=== PATIENT | female | born 1955 | race Caucasian/White ===

== ENCOUNTER 2018-11-30 07:19 | Outpatient (CLI) | payer BC ==
--- NOTE | 2018-11-30 10:02 | ULT ---
BILATERAL RENAL ULTRASOUND: Date4: 11/30/18 HISTORY: Chronic renal disease, diabetes, and hypertension. FINDINGS: The right kidney measures 11.5 cm in length and the left kidney measures 11.4 cm in length. No focal mass or hydronephrosis seen on either side. There is a 4.0 x 2.0 mm shadowing echogenic focus in the left mid renal cortex. The urinary bladder is not satisfactorily distended with a volume of 23 mL. IMPRESSION: Findings suggestive of a nonobstructing 4.0 x 2.0 mm left renal calculus. POS: OFF
--- NOTE | 2018-12-16 13:57 | MMO ---
Bilateral MAMMO Bilat Screen [facility]. CLINICAL HISTORY: Patient is 63 years old and is seen for screening. The patient has no family history of breast cancer. The patient has no personal history of cancer. VIEWS: The views performed were: bilateral craniocaudal with tomosynthesis and bilateral mediolateral oblique with tomosynthesis. FILMS COMPARED: The present examination has been compared to prior imaging studies performed at on 11/06/2009, 08/22/2013, 02/27/2015 and 02/09/2017. MAMMOGRAM FINDINGS: There are scattered fibroglandular densities. Benign calcifications are noted bilaterally. Nodularity is stable. There are no suspicious masses, suspicious calcifications, or new areas of architectural distortion. IMPRESSION: THERE IS NO MAMMOGRAPHIC EVIDENCE OF MALIGNANCY. A ROUTINE FOLLOW-UP MAMMOGRAM IN 1 YEAR IS RECOMMENDED. THE RESULTS OF THIS EXAM WERE SENT TO THE PATIENT. ACR BI-RADS Category 2 - Benign finding MAMMOGRAPHY NOTE: 1. A negative mammogram report should not delay a biopsy if a dominant of clinically suspicious mass is present. 2. Approximately 10% to 15% of breast cancers are not detected by mammography. 3. Adenosis and dense breasts may obscure an underlying neoplasm.
== END 2018-11-30 07:20 | disposition home or self-care (01) ==
LOC: BICULT 07:19
PROVIDERS: ATTEND Internal Medicine
DX: Z12.31 Encounter for screening mammogram for malignant neoplasm of breast (principal); N18.3 Chronic kidney disease, stage 3 (moderate)
CPT/HCPCS: 76770; 77063; 77067

== ENCOUNTER 2018-12-07 07:11 | Outpatient (CLI) | payer BC ==
--- NOTE | 2018-12-07 08:08 | CT ---
FLow-dose screening chest CT: 12/07/2018 COMPARISON: None HISTORY: Current smoker, smoked for 40 years, personal history of nicotine dependence TECHNIQUE: Low-dose screening CT examination of the chest performed without contrast. Coronal and sag ittal reformatted imaging provided. FINDINGS: Lack of contrast media limits assessment of the imaged viscera, the vascular structures, an d for lymphadenopathy. Coronary arterial calcification is noted. Imaged upper abdomen appears grossly unremarkable. No pleur al, pericardial, or mediastinal fluid is seen. Scattered areas of atherosclerotic calcification noted involving the ascending aorta, aortic arch, and descending thoracic aorta. No pneumothorax evident on either side. Left upper lobe: Inferiormost aspect of left upper lobe/lingula incompletely imaged. No pulmonary par enchymal mass lesion or nodule noted. Left lower lobe: No discrete pulmonary parenchymal mass lesion or nodule noted. Right upper lobe: Tiny nodule measuring 2 mm seen on coronal image 91. Similar tiny nodule noted late rally on coronal image 66. No significant pulmonary parenchymal mass lesion or nodule noted in right upper lobe. Right middle lobe: No significant pulmonary parenchymal mass lesion or nodule. Right lower lobe: Inferior most aspect of the right lower lobe posteriorly incompletely imaged. No si gnificant pulmonary parenchymal mass lesion or nodule noted. Review of the osseous structures no worrisome lytic or blastic lesion. IMPRESSION: No significant pulmonary parenchymal mass lesion or nodule. Coronary arterial calcificati on noted. The inferior most aspect of the left upper lobe and right lower lobe were not fully imaged and thus t he patient will be contacted to return for additional imaging. Once the lung parenchyma is fully imag ed, a final impression will be issued.
== END 2018-12-07 07:12 | disposition home or self-care (01) ==
LOC: CT 07:11
PROVIDERS: ATTEND Internal Medicine
DX: Z12.2 Encounter for screening for malignant neoplasm of respiratory organs (principal); F17.210 Nicotine dependence, cigarettes, uncomplicated; I25.10 Atherosclerotic heart disease of native coronary artery without angina pectoris
CPT/HCPCS: G0297

== ENCOUNTER 2019-06-02 13:23 | Outpatient (CLI) | payer BC ==
--- NOTE | 2019-06-10 15:47 | ULT ---
LOWER EXTREMITY ARTERIAL EVALUATION USING DOPPLER WAVEFORMS ANALYSIS AND SEGMENTAL LIMB PRESSURES: 06/02/19 Examination of the right leg reveals abnormal waveforms at all levels. Ankle-arm index of 0.62. Left lower extremity reveals abnormal waveforms at all levels. Ankle-arm index of 0.58. ASSESSMENT: This study is consistent with probable aortoiliac disease as well as possible superficial femoral ar eze disease bilaterally and would be consistent with a history of calf claudication bilaterally.
== END 2019-06-02 13:24 | disposition home or self-care (01) ==
LOC: ULT 13:23
PROVIDERS: ATTEND Internal Medicine
DX: I73.9 Peripheral vascular disease, unspecified (principal)
CPT/HCPCS: 93922

== ENCOUNTER 2019-11-29 14:07 | Outpatient (CLI) | payer BC ==
--- NOTE | 2019-11-29 15:08 | CT ---
CT CHEST NONCONTRAST LOW DOSE SCREENING: HISTORY: Tobacco abuse. Smoked for 40 years. COMPARISON: 12/07/2018. FINDINGS: Lungs remain slightly hyperinflated. Mild parenchymal scarring at the right anterior lung base. No jolanta ng nodules evident. No pleural fluid or pneumothorax. Calcification within the arterial structures including coronary arteries. Lack of contrast limits evaluation of the soft tissues. No bulky mediastinal adenopathy. Involving the anterolateral aspect of left rib 5 is a focal area of sclerosis with minimal if any veronica pasquale formation. No lytic lesion is evident. Immediately below this at the anterolateral aspect of left rib 6 is a subtle area of sclerosis without callus formation or fracture apparent. These rib abn ormalities were not present on the prior study from 12/07/2018. IMPRESSION : 1. Lung RADS category 2. Benign. Suggest routine screening. 2. Left anterolateral mid rib abnormalities as detailed above. These are favored to represent healin g fractures. If there is appropriate clinical history for recent left anterolateral 5th and 6th healing rib fractures in the last year, this would best explain the abnormalities on CT. In the absen ce of a good history to correlate, metastatic lesions must be considered. In that case, radionucleotide bone scan could be performed. While these lesions would show increased uptake whether fractures or neoplasm, the bone scan would be used to evaluate for other lesions throughout the skeleton. 3. Lung RADS category S. 4. Atherosclerosis. Transcribed Date/Time: 11/29/2019 3:21 PM
== END 2019-11-29 14:08 | disposition home or self-care (01) ==
LOC: BICCT 14:07
PROVIDERS: ATTEND Internal Medicine
DX: Z12.2 Encounter for screening for malignant neoplasm of respiratory organs (principal); F17.210 Nicotine dependence, cigarettes, uncomplicated; Z53.20 Procedure and treatment not carried out because of patient's decision for unspecified reasons; I25.10 Atherosclerotic heart disease of native coronary artery without angina pectoris; I70.90 Unspecified atherosclerosis; Z87.81 Personal history of (healed) traumatic fracture
CPT/HCPCS: G0297

== ENCOUNTER 2019-12-09 10:18 | Outpatient (CLI) | payer BC ==
--- NOTE | 2019-12-09 13:47 | NM ---
EXAM: NM Bone Scan STANDARD PROVIDED CLINICAL HISTORY: Rib abnormalities seen on prior CT thorax COMPARISON: CT pulmonary lung scan on 11/29/2019 FINDINGS: Increased uptake of radiotracer is seen within each shoulder, sternoclavicular joints, each wrist, an d each knee in a degenerative pattern. There is a focus of increased uptake of radiotracer seen in the left anterior fifth rib and to a much lesser extent increased uptake within a left anterior sixth rib. No additional areas of abnormal increased uptake of radiotracer are seen throughout the visualized axial or appendicular skeleton to suggest scintigraphic evidence of metastatic disease. Two separate contiguous areas of uptake within the left anterior ribs corresponds to the CT scan abnormality, and findings are likely seconda ry to prior injury and healing rib fractures. Expected activity is seen in each kidney and in the urinary bladder. IMPRESSION: 1. Foci of increased uptake within the left anterior fifth and sixth ribs without additional scintigr aphic findings to suggest osseous metastatic disease. These findings are thought to most likely be compatible with healing anterior left-sided rib fractures. 2. Degenerative changes as described above.
== END 2019-12-09 10:19 | disposition home or self-care (01) ==
LOC: NM 10:18
PROVIDERS: ATTEND Internal Medicine
DX: R93.89 Abnormal findings on diagnostic imaging of other specified body structures (principal); M19.90 Unspecified osteoarthritis, unspecified site
CPT/HCPCS: 78306; A9503

== ENCOUNTER 2020-12-18 13:27 | Outpatient (CLI) | payer BC, OTHER | END 2020-12-18 13:28 | disposition home or self-care (01) | LOC: BICMAMMO 13:27 | PROVIDERS: ATTEND Internal Medicine | DX: Z12.31 Encounter for screening mammogram for malignant neoplasm of breast (principal); Z13.820 Encounter for screening for osteoporosis; Z78.0 Asymptomatic menopausal state; M85.89 Other specified disorders of bone density and structure, multiple sites | CPT/HCPCS: 77063; 77067; 77080 ==

== ENCOUNTER 2022-01-15 14:05 | Outpatient (CLI) | payer OTHER | END 2022-01-15 14:06 | disposition home or self-care (01) | LOC: BICMAMMO 14:05 | PROVIDERS: ATTEND Internal Medicine | DX: Z12.31 Encounter for screening mammogram for malignant neoplasm of breast (principal); Z12.2 Encounter for screening for malignant neoplasm of respiratory organs; F17.210 Nicotine dependence, cigarettes, uncomplicated; I25.10 Atherosclerotic heart disease of native coronary artery without angina pectoris; I70.0 Atherosclerosis of aorta | CPT/HCPCS: 71271; 77063; 77067 ==

== ENCOUNTER 2023-04-28 12:49 | Outpatient (CLI) | payer OTHER | END 2023-04-28 12:50 | disposition home or self-care (01) | LOC: BICMAMMO 12:49 | PROVIDERS: ATTEND Internal Medicine | DX: Z12.2 Encounter for screening for malignant neoplasm of respiratory organs (principal); Z87.891 Personal history of nicotine dependence; Z12.31 Encounter for screening mammogram for malignant neoplasm of breast; Z78.0 Asymptomatic menopausal state; J98.4 Other disorders of lung; M85.89 Other specified disorders of bone density and structure, multiple sites | CPT/HCPCS: 71271; 77063; 77067; 77080 ==

== ENCOUNTER 2025-05-24 08:06 | Outpatient (CLI) | payer OTHER | END 2025-05-24 08:07 | disposition home or self-care (01) | LOC: BICMAMMO 08:06 | PROVIDERS: ATTEND Internal Medicine | DX: Z12.31 Encounter for screening mammogram for malignant neoplasm of breast (principal); Z12.2 Encounter for screening for malignant neoplasm of respiratory organs; F17.210 Nicotine dependence, cigarettes, uncomplicated; Z78.0 Asymptomatic menopausal state; M85.851 Other specified disorders of bone density and structure, right thigh; M85.852 Other specified disorders of bone density and structure, left thigh | CPT/HCPCS: 71271; 77063; 77067; 77080 ==